=== PATIENT | female | born 1970 | race Caucasian/White ===

== ENCOUNTER 2021-09-25 | Outpatient (CLI) | payer OTHER, SELFPAY ==
[2021-09-25 16:30] VITALS: BP 104/65; PULSE 68; RESP 16; TEMP 36.4; O2SAT 98
[2021-09-25 17:36] VITALS: BP 114/77; PULSE 91; RESP 18; TEMP 36.3; O2SAT 96; BMI 32.5
[2021-09-25 17:37] VITALS: BP 110/76; PULSE 74; RESP 16; TEMP 36.7; O2SAT 97
== END 2021-09-25 00:01 | disposition home or self-care (01) ==
LOC: OPS 04-13 09:56
PROVIDERS: Family Provider Nurse Practitioner; PCP Nurse Practitioner Family; Visit Provider Nurse Practitioner Family
DX: U07.1 COVID-19 (principal)
CPT/HCPCS: 96365

== ENCOUNTER 2022-04-14 09:19 | Day surgery (SDC) | payer OTHER, SELFPAY ==
[2022-04-13 09:20] VITALS: BMI 33.2
[2022-04-14 09:46] VITALS: BP 129/82; PULSE 73; RESP 18; TEMP 35.9; O2SAT 98
[2022-04-14] MEDS: sodium chloride 0.9% 1,000 ML 30 ML IV (09:53)
[2022-04-14 09:58] LABS: OR HCG Qualitative Urine Negative (Negative)
--- NOTE | 2022-04-14 10:00 | ANES.PREANE2 ---
Pre-Anesthetic Assessment Height/Weight: Height 1.75 m Weight 102.058 kg Temp Pulse Resp BP Pulse Ox 96.7 F L 73 18 129/82 98 04/14/22 09:46 04/14/22 09:46 04/14/22 09:46 04/14/22 09:46 04/14/22 09:46 Preop Diagnosis: Need for screening colonoscopy Operation Date: 04/14/22 11:00 Proposed Procedures p Colonoscopy 39936,Z12.11(Not Applicable) - Francois Srivastava DO Familial anesthetic complications: None Was Beta Michelle taken within 24 hours: Yes Was Clonidine taken within 24 hours: N/A Last intake: Intake Last Liquid Date 04/13/22 Last Liquid Time 22:00 Last Solid Date 04/12/22 Last Solid Time 18:00 Social No alcohol and No tobacco Exam alert, oriented x 3, clear to auscultation bilaterally and regular rate & rhythm Airway Mallampati: Class I Dentition: full CV/HEM Palpitations (propanolol) GI IBS Neuropsych Tremor - propanolol Anesthetic Plan ASA status: 2 Anesthesia: MAC Risk of > 500 ml blood loss (7ml/kg in children): No Medications/Allergies Home Medications Medication Instructions Recorded Confirmed Last Taken Type cetirizine 10 mg tablet (Zyrtec) 10 mg PO DAILY 04/12/22 04/13/22 04/14/22 History l.norgest-eth.estradiol triphasic 1 tab PO ONCE tab 04/12/22 04/13/22 04/13/22 22:00 History 50-30 (6)/75-40(5)/125-30(10) tablet fluticasone propionate 50 50 mcg INTRANASAL DAILY PRN 04/13/22 04/13/22 04/14/22 History mcg/actuation nasal spray,suspension propranolol 80 mg capsule,24 80 mg PO DAILY 04/13/22 04/13/22 04/13/22 22:00 History hr,extended release Allergies Allergy/AdvReac Type Severity Reaction Status Date / Time Sulfa (Sulfonamide Allergy hives Verified 04/12/22 09:03 Antibiotics) Current Medications Generic Name Dose Route Start Last Admin Trade Name Freq PRN Reason Stop Dose Admin Sodium Chloride 1,000 mls @ 30 mls/hr 04/14/22 09:45 04/14/22 09:53 Sodium Chloride 0.9% IV 30 mls/hr .Q24H DEVIKA Administration PFSH Anesthesia Medical History Hx of laser treatment, cervix, complicating IBS (irritable bowel syndrome) Tremor Surgical History Hx of colonoscopy 20 yrs ago Family History Denies family history of Anesthesia complication Social History Smoking and tobacco status: never smoked Data Anesthesia Cardiac Studies: No Data to Display
--- NOTE | 2022-04-14 10:52 | W.PM.OPSUD ---
Surgery/Procedure H&P Update DATE OF PROCEDURE: April 14, 2022 DATE H&P PERFORMED: 04/12/22 PREOP DIAGNOSIS: Need for screening colonoscopy PLANNED PROCEDURE: Operation Date: 04/14/22 11:00 Proposed Procedures p Colonoscopy [id number],Z12.11(Not Applicable) - Francois Srivastava DO
[2022-04-14 12:13] VITALS: BP 103/74; PULSE 72; RESP 16; TEMP 36.1; O2SAT 100
[2022-04-14 12:24] VITALS: BP 129/82; PULSE 74; RESP 16; O2SAT 99
[2022-04-14 12:32] VITALS: BP 133/81; PULSE 67; RESP 16; O2SAT 100
--- NOTE | 2022-04-14 13:49 | ANE.PACU2 ---
Inpatient post-anesthesia follow up: Airway intact: Yes Vital signs: Temperature 97 F Pulse Rate 67 Respiratory Rate 16 Blood Pressure 133/81 Pulse Oximetry 100 Oxygen Delivery Me thod Room Air Oxygen Flow Rate Fraction of Inspir ed Oxygen Hydration adequate: Yes Nausea and vomiting: No Pain level: 1 Mental status: Baseline
== END 2022-04-14 12:45 | disposition home or self-care (01) ==
PROVIDERS: Anesthesiology; PCP Nurse Practitioner Family; Visit Provider Surgery
PROC: 0DJD8ZZ Inspection of Lower Intestinal Tract, Via Natural or Artificial Opening Endoscopic (ICD-10-PCS; CPT 45378; principal; 2022-04-14 11:00)
DX: Z12.11 Encounter for screening for malignant neoplasm of colon (principal); K63.5 Polyp of colon
CPT/HCPCS: 45385; 81025; 84703; 88305; J2704; J7030

== ENCOUNTER 2022-08-10 16:32 | Outpatient (CLI) | payer OTHER, SELFPAY ==
--- NOTE | 2022-08-10 16:56 | XR_ITS ---
WS: [id number] Exam: XR wrist LT min 3V* [id number] Date/Time of Exam: 08/10/2022 5:07 PM Reason For Exam: LT WRIST INJURY There are no fractures, soft tissue swelling, or unusual calcifications. The wrist shows normal bony alignment. There is no irregularity of the bony architecture. XR/XR wrist LT min 3V* [id number] IMPRESSION: Negative left wrist.
== END 2022-08-10 16:33 | disposition home or self-care (01) ==
PROVIDERS: PCP Nurse Practitioner Family; Visit Provider Nurse Practitioner Family
DX: S69.92XA Unspecified injury of left wrist, hand and finger(s), initial encounter (principal); X58.XXXA Exposure to other specified factors, initial encounter
CPT/HCPCS: 73110